=== PATIENT | female | born 2000 | race Caucasian/White ===

== ENCOUNTER 2021-12-12 22:52 | Emergency (ER) | payer SELFPAY ==
[~2021-12-12] VITALS: Ht 154.9 cm; Wt 44.5 kg
[2021-12-12 23:00] VITALS: BP 117/69
--- NOTE | 2021-12-12 23:16 | ED Cough/URI ---
General Stated Complaint: FEVER, BODY ACHES, SORE THROAT Source: patient History of Present Illness Date Seen by Provider: Dec 12, 2021 Time Seen by Provider: 23:15 Initial Comments PT ARRIVES VIA POV FROM HOME SYMPTOMS BEGAN THIS AFTERNOON C/O FEVER UP TO 101 C/O BODY ACHES C/O SORE THROAT NO COUGH/CONGESTION NO GI SYMPTOMS NO LOSS OF TASTE OR SMELL NO HEADACHE PT TOOK TYLENOL THIS AFTERNOON, OTHERWISE HAS NOT TAKEN ANYTHING FOR SYMPTOMS PT HAD PFIZER COVID-19 VACCINE X 2--LAST ONE IN AUGUST, HAS NOT HAD BOOSTER VACCINE. HAS NOT HAD FLU VACCINE 5 OTHER PEOPLE LIVE IN THE HOME, INCLUDING HER FEMALE S.O, WHO ALSO HAS SAME SY MPTOMS PT WORKS AT [email or web address] DENIES ANY CHRONIC ILLNESSES PCP: NONE--JUST MOVED HERE 3-4 MONTHS AGO FROM [place], AND DID NOT HAVE A DR THERE EITHER. Allergies and Home Medications Patient Home Medication List Home Medication List Reviewed: Yes Review of Systems Review of Systems Constitutional: see HPI, fever EENTM: see HPI, throat pain Respiratory: no symptoms reported Cardiovascular: no symptoms reported Gastrointestinal: no symptoms reported Genitourinary: no symptoms reported LMP: Nov 29, 2021 Musculoskeletal: see HPI (BODY ACHES) Skin: no symptoms reported Psychiatric/Neurological: No Symptoms Reported Hematologic/Lymphatic: No Symptoms Reported Immunological/Allergic: no symptoms reported Past Gregmvs-Wljcjt-Lengxl Hx Past Medical History Surgeries: No Respiratory: No Cardiac: No Neurological: No Genitourinary: No Gastrointestinal: No Musculoskeletal: No Endocrine: No HEENT: No Cancer: No Psychosocial: No Integumentary: No Blood Disorders: No Physical Exam Capillary Refill : Height: '" Weight: lbs. oz. kg; BMI Method: General Appearance: WD/WN, no apparent distress, other (DOES NOT APPEAR ILL OR TO BE IN ANY DISCOMFORT OR DISTRESS. HAIR DYED TURQUOISE AND WHITE/BLOND. ) HEENT: PERRL/EOMI, normal ENT inspection, TMs normal, pharynx normal Neck: normal inspection Respiratory: normal breath sounds, no respiratory distress, no accessory muscle use Cardiovascular: regular rate, rhythm, no murmur Gastrointestinal: non tender, soft Extremities: normal inspection Neurologic/Psychiatric: no motor/sensory deficits, alert, normal mood/affect, oriented x 3 Skin: normal color (PT IS DARK SKINNED), warm/dry, tattoos/piercings Progress/Results/Core Measures Suspected Sepsis SIRS Temperature: Pulse: Respiratory Rate: Blood Pressure / Mean: Results/Orders Lab Results Laboratory Tests Test 12/12/21 23:25 Range/Units Influenza Type A Antigen NEGATIVE NEGATIVE Influenza Type B Antigen NEGATIVE NEGATIVE Group A Streptococcus Screen NEGATIVE NEGATIVE My Orders Orders - GUIDO SANFORD DO Influenza A & B Antigens (12/12/21 23:14) Coronavirus Sars-Cov-2 So 2018 (12/12/21 23:14) Rapid Strep A Screen (12/12/21 23:16) Vital Signs/I&O Capillary Refill : Progress Note : Progress Note PLACED IN ISOLATION ROOM PPE WORN AT ALL TIMES COVID AND FLU TESTING DONE NO COUGH NO DYSPNEA NO HYPOXIA ADVISED OF NEED FOR QUARANTINE AND RETESTING IF SEND OUT COVID TEST IS NEGATIVE Departure Impression Primary Impression: Person under investigation for COVID-19 Disposition: 01 HOME, SELF-CARE Condition: Stable Departure-Patient Inst. Decision time for Depature: 00:05 Referrals: NO,LOCAL PHYSICIAN (PCP/Family) Primary Care Physician Patient Instructions: COVID-19 Tests, Preventing the Spread of an Infectious D isease Add. Discharge Instructions: LOTS OF CLEAR LIQUIDS TYLENOL 1 GRAM PLUS MOTRIN 800 MG 4 TIMES A DAY FOR PAIN OR FEVER QUARANTINE FOR THE NEXT 5 DAYS IF YOUR SEND OUT COVID-19 TEST THAT WAS DONE TONIGHT IS NEGATIVE, YOU NEED TO BE RECHECKED IN 2-3 DAYS--YOU MAY GO TO [facility] OR YOUR [facility] FOR TESTING--YOU WILL NEED TO CALL AND MAKE AN APPOINTMENT Work/School Note: Work Release Form Date Seen in the Emergency Department: Dec 12, 2021 Return to Work: Dec 18, 2021 GUIDO SANFORD DO Dec 12, 2021 23:16
== END 2021-12-13 00:28 | disposition home or self-care (01) ==
LOC: ER 22:54
DX: U07.1 COVID-19 (principal)
CPT/HCPCS: 87430; 87635; 87804; 99283